=== PATIENT | female | born 1960 | race Caucasian/White ===

== ENCOUNTER 2017-08-26 09:42 | Day surgery (SDC) | payer BC, OTHER ==
[2017-08-25 15:10] VITALS: BMI 21.6
[2017-08-26 10:44] VITALS: RESP 16; TEMP 96.4
[2017-08-26 10:54] LABS: Glucose,Whole Blood 84 mg/dL (75-99)
[2017-08-26] MEDS ORDERED: LIDOCAINE 1% 20 ML VIAL (10MG/ML) FOR IV START INTRADERMA ONE (10:54)
[2017-08-26] MEDS: LACTATED RINGERS 1,000 ML IV SCH ×2 (10:54→11:15)
[2017-08-26] MEDS ORDERED: PROPOFOL 10 MG/ML 20 ML VIAL IV ONE (11:16)
--- NOTE | 2017-08-26 11:40 | P.PCN ---
Date of Procedure: 08/26/17 Procedure(s) Performed: BRIEF HISTORY: Patient is a 57-year-old pleasant white female scheduled for an elective colonoscopy as a part of intermittent right lower quadrant abdominal pain and rectal bleeding on and off for the last 2 years duration. PROCEDURE PERFORMED: Colonoscopy. PREOPERATIVE DIAGNOSIS: Abdominal pain and intermittent rectal bleeding. IV sedation per Anesthesia. PROCEDURE: After informed consent was obtained, the patient, was brought into the endoscopy unit. IV sedation was administered by Anesthesia under continuous monitoring. Digital rectal examination was normal. Initially the Olympus CF- 160 flexible video colonoscope was then inserted in the rectum, gradually advanced into the sigmoid colon and further advancement was not possible because of acute sigmoid and dilation. The scope was removed and a pediatric colonoscopy was then introduced and rectum and was gradually advanced into the cecum with [id number] difficulty. Careful examination was performed as the scope was gradually being withdrawn. Ileocecal valve and the appendiceal orifice were visualized and appeared normal. Prep was excellent. Mucosa of the cecum, ascending colon, transverse colon, descending colon, sigmoid colon, and rectum appeared normal. Retroflexion was performed in the rectum and small internal hemorrhoids were seen. The patient tolerated the procedure well. IMPRESSION: Normal-appearing colon from rectum to cecum with no evidence of colorectal neoplasia. Small internal hemorrhoids. RECOMMENDATIONS: Findings of this examination were discussed with the patient is well as her family. She was advised to continue with a high-fiber diet and fiber supplements a regular basis. He can have a repeat screening colonoscopy in 5 years because of family history of colon cancer.
[2017-08-26 11:58] VITALS: BP 126/78; PULSE 70
== END 2017-08-26 12:14 | disposition home or self-care (01) ==
LOC: ORWHC2ENDO 09:42
PROVIDERS: ATTEND Internal Medicine Gastroenterology
DX: K64.8 Other hemorrhoids (principal); Z80.0 Family history of malignant neoplasm of digestive organs; E07.9 Disorder of thyroid, unspecified; G40.909 Epilepsy, unspecified, not intractable, without status epilepticus; Z79.899 Other long term (current) drug therapy; Z88.5 Allergy status to narcotic agent; Z88.8 Allergy status to other drugs, medicaments and biological substances
CPT/HCPCS: 45378; J2704

== ENCOUNTER → 2018-03-30 | Outpatient (CLI) | payer OTHER ==
--- NOTE | 2018-03-30 12:19 | MM ---
Reason for exam: screening (asymptomatic). Last mammogram was performed 2 years and 1 month ago. History: Patient is postmenopausal. Family history of breast cancer in paternal aunt. Took hormonal contraceptives for 3 years. Physical Findings: A clinical breast exam by your physician is recommended on an annual basis and results should be correlated with mammographic findings. MG 3D Screening Mammo W/Cad Bilateral CC and MLO view(s) were taken. Prior study comparison: February 22, 2016, bilateral MG screening mammo w CAD. May 18, 2013, CAD bilateral diagnostic mammogram. The breast tissue is heterogeneously dense. This may lower the sensitivity of mammography. There is no discrete abnormality. ASSESSMENT: Negative, BI-RAD 1 RECOMMENDATION: Routine screening mammogram of both breasts in 1 year.
== END ==
LOC: RADMAMWWP 07:34
PROVIDERS: ATTEND Family Medicine
DX: Z12.31 Encounter for screening mammogram for malignant neoplasm of breast (principal)
CPT/HCPCS: 77063; 77067

== ENCOUNTER → 2019-03-31 | Outpatient (CLI) | payer OTHER ==
--- NOTE | 2019-03-31 11:19 | MM ---
Reason for exam: screening (asymptomatic). Last mammogram was performed 1 year ago. History: Patient is postmenopausal and has history of other cancer at age 58. Family history of breast cancer in paternal aunt. Took hormonal contraceptives for 3 years. Physical Findings: A clinical breast exam by your physician is recommended on an annual basis and results should be correlated with mammographic findings. MG 3D Screening Mammo W/Cad Bilateral CC and MLO view(s) were taken. Prior study comparison: March 30, 2018, bilateral MG 3d screening mammo w/cad. February 22, 2016, bilateral MG screening mammo w CAD. The breast tissue is heterogeneously dense. This may lower the sensitivity of mammography. There is no discrete abnormality. ASSESSMENT: Negative, BI-RAD 1 RECOMMENDATION: Routine screening mammogram of both breasts in 1 year.
== END | disposition home or self-care (01) ==
LOC: RADMAMWWP 07:33
PROVIDERS: ATTEND Family Medicine
DX: Z12.31 Encounter for screening mammogram for malignant neoplasm of breast (principal)
CPT/HCPCS: 77063; 77067

== ENCOUNTER → 2019-07-13 | Outpatient (CLI) | payer OTHER ==
--- NOTE | 2019-07-13 13:53 | US ---
EXAMINATION TYPE: US thyroid st tissue head/neck DATE OF EXAM: 07/13/2019 COMPARISON: 10/06/2017 CLINICAL HISTORY: E04.1 thyroid nodule, R59.1 Lymphadenopathy. GLAND SIZE: Right Lobe: 4.7 x 1.0 x 1.3 cm Overall Parenchyma: homogenous Left Lobe: 4.9 x 1.7 x 1.1 cm Overall Parenchyma: homogeneous Isthmus Thickness: 0.2 cm NODULES RIGHT: # of nodules measured on right: 2 1. 0.7 X 0.4 x 0.3 cm hypoechoic cystic nodule at the lower pole with well-defined margins; interru pted peripheral calcification. This nodule is wider than tall and shows no intranodular vascularity. Prior size: 0.5 x 0.4 x 0.3 cm 2. 0.7 X 0.4 x 0.3 cm hypoechoic cystic nodule at the mid lateral pole with well-defined margins. T his nodule is wider than tall and shows no intranodular vascularity. Prior size: 0.5 x 0.3 x 0.4 LEFT: # of nodules measured on left: 2 1. 0.6 X 0.6 x 0.4 cm hypoechoic mixed nodule at the mid pole with poorly defined margins. This no dule is wider than tall and shows no intranodular vascularity. Prior size: 0.6 x 0.3 x 0.5 cm 2. 1.3 X 0.9 x 0.5 cm hypoechoic solid nodule at the lower pole with well-defined margins. This nod ule is wider than tall and shows intranodular vascularity. Prior size: 0.9 x 0.6 x 0.7 cm ISTHMUS: # of nodules measured in the isthmus: 0 US findings of bilateral neck scanned: superolateral to right thyroid couple of lymph nodes are seen with larger node = 1.3 x 0.6 x 0.4cm. Superolateral to left thyroid one lymph node is seen = 0.95 x 0 .6 x 0.3cm. IMPRESSION: 1. Thyromegaly with a single thyroid nodule measuring greater than 1 cm (1.3 cm) on the left which is increased in size from the prior exam where it measured 9 mm. 2. Shotty lymphadenopathy. 3. Multiple additional subcentimeter thyroid nodules noted.
== END | disposition home or self-care (01) ==
LOC: RADUSWWP 12:50
PROVIDERS: ATTEND Family Medicine
DX: E01.0 Iodine-deficiency related diffuse (endemic) goiter (principal); R59.1 Generalized enlarged lymph nodes
CPT/HCPCS: 76536

== ENCOUNTER → 2019-08-02 | Outpatient (CLI) | payer OTHER ==
[2019-08-02 18:15] LABS: Thyroid Peroxidase Antibodies <28.0 U/mL (0.0-60.0)
== END | disposition home or self-care (01) ==
LOC: LABWHC1 09:06
PROVIDERS: ATTEND Otolaryngology
DX: E04.1 Nontoxic single thyroid nodule (principal)
CPT/HCPCS: 36415; 86376; 86800

== ENCOUNTER → 2020-07-12 | Outpatient (CLI) | payer OTHER ==
--- NOTE | 2020-07-13 11:35 | MM ---
Reason for exam: screening (asymptomatic). Last mammogram was performed 1 year and 3 months ago. History: Patient is postmenopausal and has history of other cancer at age 58. Family history of breast cancer in paternal aunt. Took hormonal contraceptives for 3 years. Physical Findings: A clinical breast exam by your physician is recommended on an annual basis and results should be correlated with mammographic findings. MG 3D Screening Mammo W/Cad Bilateral CC and MLO view(s) were taken. Prior study comparison: March 31, 2019, bilateral MG 3d screening mammo w/cad. March 30, 2018, bilateral MG 3d screening mammo w/cad. The breast tissue is heterogeneously dense. This may lower the sensitivity of mammography. No significant changes when compared with prior studies. ASSESSMENT: Benign, BI-RAD 2 RECOMMENDATION: Routine screening mammogram of both breasts in 1 year.
== END | disposition home or self-care (01) ==
LOC: RADMAMWWP 14:02
PROVIDERS: ATTEND Nurse Practitioner Adult Health
DX: Z12.31 Encounter for screening mammogram for malignant neoplasm of breast (principal)
CPT/HCPCS: 77063; 77067

== ENCOUNTER → 2020-11-16 | Outpatient (CLI) | payer OTHER ==
--- NOTE | 2020-11-16 14:49 | US ---
EXAMINATION TYPE: US thyroid st tissue head/neck DATE OF EXAM: 11/16/2020 COMPARISON: US 2019 CLINICAL HISTORY: E04.1 Thyroid nodule. GLAND SIZE: Right Lobe: 4.3 x 1.2 x 1.8 cm Overall Parenchyma: homogenous Left Lobe: 5.0 x 1.3 x 1.4 cm Overall Parenchyma: homogeneous Isthmus Thickness: 0.2 cm NODULES RIGHT: # of nodules measured on right: 2 1. 0.7 X 0.3 x 0.5 cm, mid mid, cystic or almost completely cystic, anechoic nodule, which is wider than tall, with smooth margins, without echogenic foci. Prior size: 0.7 x 0.3 x 0.4 cm 2. 0.6 X 0.3 x 0.5 cm, lower medial, cystic or almost completely cystic, anechoic cyst with periphe ral calcification suggestive of a colloid cyst, which is wider than tall, with smooth margins, with e chogenic foci. Prior size: 0.7 x 0.4 x 0.3 cm LEFT: # of nodules measured on left: 2 1. 0.7 X 0.5 x 0.7 cm, mid mid, solid or almost completely solid, hypoechoic spongiform nodule, whi ch is wider than tall, with smooth margins, without echogenic foci. Prior size: 0.6 x 0.6 x 0.4 cm 2. 1.1 X 0.6 x 0.8 cm, lower lateral, solid or almost completely solid, hypoechoic nodule, which i s wider than tall, with ill-defined margins, without echogenic foci. Prior size: 1.3 x 0.9 x 0.5 cm ISTHMUS: # of nodules measured in the isthmus: 0 Bilateral neck scanned, no evidence of lymphadenopathy. IMPRESSION: 1. 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 2. Left thyroid gland: Spongiform nodule within the left thyroid gland is minimally larger than prior exam. This is a TI-RADS 1 nodule. 3. Left thyroid gland: There is a 1.1 cm hypoechoic nodule which is slightly smaller than prior exam suggestive of a TI-RADS 4 nodule. Continued sonographic follow-up is recommended. 2017 ACR TI-RADS LEVEL: 4 *Highest TI-RADS level nodule reported
== END | disposition home or self-care (01) ==
LOC: RADUSWWP 12:35
PROVIDERS: ATTEND Family Medicine
DX: E04.1 Nontoxic single thyroid nodule (principal)
CPT/HCPCS: 76536

== ENCOUNTER → 2021-08-02 | Outpatient (CLI) | payer OTHER ==
--- NOTE | 2021-08-06 09:29 | MM ---
Reason for exam: screening (asymptomatic). Last mammogram was performed 1 year and 1 month ago. History: Patient is postmenopausal and has history of other cancer at age 58. Family history of breast cancer in paternal aunt. Took hormonal contraceptives for 3 years. Physical Findings: A clinical breast exam by your physician is recommended on an annual basis and results should be correlated with mammographic findings. MG 3D Screening Mammo W/Cad Bilateral CC and MLO view(s) were taken. Prior study comparison: July 12, 2020, bilateral MG 3d screening mammo w/cad. March 31, 2019, bilateral MG 3d screening mammo w/cad. The breast tissue is heterogeneously dense. This may lower the sensitivity of mammography. Central left MLO density does not persist on 3D images and appears similar to 2016. No significant changes when compared with prior studies. ASSESSMENT: Benign, BI-RAD 2 RECOMMENDATION: Routine screening mammogram of both breasts in 1 year. Patient should continue monthly self breast exams. A negative report should not preclude additional follow up of suspicious palpable abnormalities.
== END | disposition home or self-care (01) ==
LOC: RADMAMWWP 12:51
PROVIDERS: ATTEND Family Medicine
DX: Z12.31 Encounter for screening mammogram for malignant neoplasm of breast (principal)
CPT/HCPCS: 77063; 77067

== ENCOUNTER 2021-10-24 19:33 | Emergency (ER) | payer OTHER ==
--- NOTE | 2021-10-24 21:39 | XR ---
EXAMINATION TYPE: XR chest 1V portable DATE OF EXAM: 10/24/2021 9:04 PM COMPARISON: None TECHNIQUE: XR chest 1V portable Frontal view of the chest. CLINICAL INDICATION:Female, 61 years old with history of cough ; FINDINGS: Lungs/Pleura: There is no evidence of pleural effusion, focal consolidation, or pneumothorax. Pulmonary vascularity: Unremarkable. Heart/mediastinum: Cardiomediastinal silhouette is unremarkable. Musculoskeletal: No acute osseous pathology. IMPRESSION: No acute cardiopulmonary disease/process.
[2021-10-24] MEDS ORDERED: OSELTAMIVIR 75 MG CAP PO STA (21:42)
--- NOTE | 2021-10-24 21:46 | ED ---
Headache HPI - General Chief Complaint: Headache Stated Complaint: Headache,Cough Time Seen by Provider: 10/24/21 21:40 Source: RN notes reviewed, old records reviewed Mode of arrival: ambulatory Limitations: no limitations - History of Present Illness Initial Comments: This is a 61-year-old female to the emergency department for evaluation of multiple nonspecific complaints including headache fever chills. Patient has no known travel history or sick contacts. She states she has have a history of migraines miscarriages by mouth worst migraine than normal. No traumas. Just feeling pressure pressure on her face and bodyaches and pains. MD Complaint: headache, other (Bodyaches) -: hour(s) Onset Description: gradual Location: frontal Severity: moderate Severity scale (1-10): 6 Quality: aching, throbbing Consistency: constant Improves With: nothing Worsens With: none Context: occurred at rest Associated Symptoms: fever, nausea Other Symptoms: cough, malaise Treatments Prior to Arrival: none - Related Data Home Medications Medication Instructions Recorded Confirmed Levothyroxine Sodium [Synthroid] 1 tab PO DAILY 12/23/13 08/26/17 carBAMazepine [TEGretol] 400 tab PO DAILY 12/23/13 08/26/17 Previous Rx's Medication Instructions Recorded Oseltamivir [Tamiflu] 75 mg PO Q12HR #10 cap 10/24/21 Allergies Allergy/AdvReac Type Severity Reaction Status Date / Time hydroxychloroquine sulfate Allergy Rash/Hives Verified 10/24/21 20:49 [From Plaquenil] codeine AdvReac Abdominal Verified 10/24/21 20:49 Pain Review of Systems ROS Statement: Those systems with pertinent positive or pertinent negative responses have been documented in the HPI. ROS Other: All systems not noted in ROS Statement are negative. Past Medical History Past Medical History: Seizure Disorder, Thyroid Disorder Additional Past Medical History / Comment(s): hemorrhoid-with some bleeding. History of Any Multi-Drug Resistant Organisms: None Reported Past Surgical History: Appendectomy, Cholecystectomy, Hysterectomy Additional Past Surgical History / Comment(s): elbow surgery. Past Anesthesia/Blood Transfusion Reactions: No Reported Reaction, Motion Sickness Past Psychological History: No Psychological Hx Reported Smoking Status: Never smoker Past Alcohol Use History: Occasional Past Drug Use History: None Reported - Past Family History Mother Family Medical History: Cancer Additional Family Medical History / Comment(s): lung cancer Father Family Medical History: Cancer Additional Family Medical History / Comment(s): lung cancer General Exam Limitations: no limitations General appearance: alert, in no apparent distress Head exam: Present: atraumatic, normocephalic, normal inspection Eye exam: Present: normal appearance, PERRL, EOMI. Absent: scleral icterus, conjunctival injection, periorbital swelling ENT exam: Present: normal exam, mucous membranes moist Neck exam: Present: normal inspection. Absent: tenderness, meningismus, lymphadenopathy Respiratory exam: Present: normal lung sounds bilaterally. Absent: respiratory distress, wheezes, rales, rhonchi, stridor Cardiovascular Exam: Present: regular rate, normal rhythm, normal heart sounds. Absent: systolic murmur, diastolic murmur, rubs, gallop, clicks GI/Abdominal exam: Present: soft, normal bowel sounds. Absent: distended, tenderness, guarding, rebound, rigid Extremities exam: Present: normal inspection, full ROM, normal capillary refill. Absent: tenderness, pedal edema, joint swelling, calf tenderness Back exam: Present: normal inspection Neurological exam: Present: alert, oriented X3, CN II-XII intact Psychiatric exam: Present: normal affect, normal mood Skin exam: Present: warm, dry, intact, normal color. Absent: rash Course Vital Signs 10/24/21 10/24/21 20:43 21:42 Temperature 99.7 F H Pulse Rate 99 Respiratory 18 20 Rate Blood Pressure 106/58 O2 Sat by Pulse 96 Oximetry - Reevaluation(s) Reevaluation #1: 10/24/21 21:44 Medical record is reviewed Reevaluation #2: 10/24/21 21:45 Patient symptoms are improved here in the emergency department Reevaluation #3: 10/24/21 21:45 Patient informed results and questions answered Medical Decision Making - Medical Decision Making 61 female who is presents today for evaluation regards to headache. Patient has positive flu. Patient will be placed on Tamiflu and can be discharged home Motrin Tylenol for symptoms - Lab Data Lab Results 10/24/21 10/24/21 10/24/21 Range/Units 20:57 20:57 20:57 Coronavirus (PCR) Not Detected (Not Detectd) Influenza Type A RNA Detected H (Not Detectd) Influenza Type B (PCR) Not Detected (Not Detectd) Group A Strep Rapid Negative (Negative) - Radiology Data Radiology results: report reviewed (Chest x-rays negative for acute disease), image reviewed Disposition Clinical Impression: Influenza A, Headache Disposition: HOME SELF-CARE Condition: Good Instructions (If sedation given, give patient instructions): Influenza (ED) Prescriptions: Oseltamivir [Tamiflu] 75 mg PO Q12HR #10 cap Is patient prescribed a controlled substance at d/c from ED?: No Referrals: Kavon Mcintyre MD [Primary Care Provider] - 1-2 days
[2021-10-24] MEDS ORDERED: PROCHLORPERAZINE 5 MG TAB PO STA (21:54)
[2021-10-24] MEDS ORDERED: diphenhydrAMINE 50 MG CAP PO STA (21:54)
[2021-10-24] MEDS ORDERED: dexAMETHasone 2 MG TAB PO STA (21:54)
[2021-10-24] MEDS ORDERED: ETODOLAC 400 MG TAB PO STA (21:54)
[2021-10-24] MEDS ORDERED: HYDROcodone/APAP 5-325MG 1 EACH TAB PO STA (21:54)
[2021-10-24 22:18] VITALS: BP 110/60; PULSE 92; RESP 18; TEMP 98.7
== END 2021-10-24 22:17 | disposition home or self-care (01) ==
LOC: EC 19:33
DX: J10.1 Influenza due to other identified influenza virus with other respiratory manifestations (principal); R51.9 Headache, unspecified; E07.9 Disorder of thyroid, unspecified; Z79.1 Long term (current) use of non-steroidal anti-inflammatories (NSAID); Z20.822 Contact with and (suspected) exposure to COVID-19; Z88.5 Allergy status to narcotic agent; Z88.8 Allergy status to other drugs, medicaments and biological substances
CPT/HCPCS: 87081; 87430; 87502; 87635; 71045; 99284; S0183; J8540

== ENCOUNTER → 2021-12-30 | Outpatient (CLI) | payer OTHER ==
--- NOTE | 2021-12-30 13:00 | US ---
EXAMINATION TYPE: US thyroid st tissue head/neck DATE OF EXAM: 12/30/2021 COMPARISON: 11/16/20 CLINICAL HISTORY: E04.1 Nontoxic single thyroid nodule. Hx of thyroid nodules GLAND SIZE: Right Lobe: 4.6 x 1.7 x 1.2 cm Overall Parenchyma: homogenous Left Lobe: 4.3 x 1.7 x 1.1 cm Overall Parenchyma: homogeneous Isthmus Thickness: 0.24 cm NODULES RIGHT: # of nodules measured on right: 2 1. 0.3 X 0.2 x 0.2 cm, mid lateral, cystic or almost completely cystic, anechoic nodule, which is w ider than tall, with smooth margins, with echogenic foci. Prior size: N/A 2. 0.6 X 0.5 x 0.3 cm, mid mid, cystic or almost completely cystic, anechoic nodule, which is wider than tall, with smooth margins, without echogenic foci. Prior size: 0.7 x 0.5 x 0.3 cm LEFT: # of nodules measured on left: 2 1. 0.8 X 0.6 x 0.4 cm, mid mid, solid or almost completely solid, hypoechoic nodule, which is wider than tall, with smooth margins, without echogenic foci. Prior size: 0.7 x 0.7 x 0.5 cm 2. 1.2 X 0.9 x 0.6 cm, lower lateral, solid or almost completely solid, hypoechoic nodule, which i s wider than tall, with ill-defined margins, without echogenic foci. Prior size: 1.1 x 0.8 x 0.6 cm ISTHMUS: # of nodules measured in the isthmus: 0 Bilateral neck scanned, no evidence of lymphadenopathy. Heterogeneous normal-sized thyroid with stable small bilateral thyroid nodules. IMPRESSION: As above. No new or enlarging greater than 1.0 cm solid nodule seen.
== END | disposition home or self-care (01) ==
LOC: RADUSWWP 12:18
PROVIDERS: ATTEND Family Medicine
DX: E04.1 Nontoxic single thyroid nodule (principal)
CPT/HCPCS: 76536

== ENCOUNTER 2022-04-01 10:43 | Observation (INO) | payer OTHER ==
[2022-04-01] MEDS ORDERED: ASPIRIN 81 MG PO STA (11:08)
--- NOTE | 2022-04-01 11:23 | ED ---
Chest Pain HPI - General Chief Complaint: Chest Pain Stated Complaint: chest pain Time Seen by Provider: 04/01/22 11:00 Source: patient, RN notes reviewed Mode of arrival: ambulatory Limitations: no limitations - History of Present Illness Initial Comments: 61-year-old female presents emergency Department with chief complaint chest pain. Patient states she's been having progressive symptoms. Patient states that symptoms are usually onset with exertion. She states she starts developing centralized chest pressure radiates to her right jaw region. Patient denies any prior cardiac disease she does have significant family heart disease. Patient denies fevers or chills patient denies any lung disease no prior DVT or PE. - Related Data Home Medications Medication Instructions Recorded Confirmed Levothyroxine Sodium [Synthroid] 25 mcg PO DAILY 12/23/13 04/01/22 carBAMazepine [TEGretol] 200 tab PO BID 12/23/13 04/01/22 FLUoxetine HCL [PROzac] 40 mg PO DAILY 04/01/22 04/01/22 Allergies Allergy/AdvReac Type Severity Reaction Status Date / Time hydroxychloroquine sulfate Allergy Rash/Hives Verified 04/01/22 12:15 [From Plaquenil] codeine AdvReac Abdominal Verified 04/01/22 12:15 Pain Review of Systems ROS Statement: Those systems with pertinent positive or pertinent negative responses have been documented in the HPI. ROS Other: All systems not noted in ROS Statement are negative. EKG Findings - EKG Comments: EKG Findings:: EKG performed at 11:09 sinus rhythm with rate of 71 CA 156 QRS 99 QT/ QTC 390/418 Past Medical History Past Medical History: Seizure Disorder, Thyroid Disorder Additional Past Medical History / Comment(s): hemorrhoid-with some bleeding. History of Any Multi-Drug Resistant Organisms: None Reported Past Surgical History: Appendectomy, Cholecystectomy, Hysterectomy Additional Past Surgical History / Comment(s): elbow surgery. Past Anesthesia/Blood Transfusion Reactions: No Reported Reaction, Motion Sickness Past Psychological History: No Psychological Hx Reported Smoking Status: Never smoker Past Alcohol Use History: Occasional Past Drug Use History: None Reported - Past Family History Mother Family Medical History: Cancer Additional Family Medical History / Comment(s): lung cancer Father Family Medical History: Cancer Additional Family Medical History / Comment(s): lung cancer General Exam Limitations: no limitations General appearance: alert, in no apparent distress Head exam: Present: atraumatic, normocephalic, normal inspection Eye exam: Present: normal appearance, PERRL, EOMI. Absent: scleral icterus, conjunctival injection, periorbital swelling ENT exam: Present: normal exam, normal oropharynx, mucous membranes moist Neck exam: Present: normal inspection, full ROM. Absent: tenderness, meningismus, lymphadenopathy Respiratory exam: Present: normal lung sounds bilaterally. Absent: respiratory distress, wheezes, rales, rhonchi, stridor Cardiovascular Exam: Present: regular rate, normal rhythm, normal heart sounds. Absent: systolic murmur, diastolic murmur, rubs, gallop, clicks Course Vital Signs 04/01/22 10:50 Temperature 98.0 F Pulse Rate 79 Respiratory 18 Rate Blood Pressure 139/65 O2 Sat by Pulse 99 Oximetry Chest Pain MDM - MDM 61-year-old presented for chest pain, chest pressure with radiation progressive symptoms worsen with exertion. Patient workup was negative this time she'll be admitted for further cardiac rule out including echocardiogram, carotid evaluation. Disposition Clinical Impression: Chest pain Disposition: ADMITTED IP TO THIS HOSP Condition: Fair Referrals: Parris Dominguez NPC [Primary Care Provider] - 1-2 days Time of Disposition: 12:39
[2022-04-01 11:46] LABS: Basophils % (A) 1 %; Eosinophils # (A) 0.1 k/uL (0-0.7); Eosinophils % (A) 2 %; HCT 36.6 % (34.0-46.0); HGB 12.8 gm/dL (11.4-16.0); Lymphocytes # (A) 1.2 k/uL (1.0-4.8); Lymphocytes % (A) 31 %; MCH 33.4 pg (25.0-35.0); MCHC 35.1 g/dL (31.0-37.0); MCV 95.2 fL (80.0-100.0); Mean Platelet Volume 8.1; Monocytes # (A) 0.3 k/uL (0-1.0); Monocytes % (A) 8 %; Neutrophils # (A) 2.1 k/uL (1.3-7.7); Neutrophils % (A) 55 %; Platelet Count 197 k/uL (150-450); RBC 3.84 m/uL (3.80-5.40); RDW 12.1 % (11.5-15.5); WBC 3.9 k/uL (3.8-10.6)
[2022-04-01 11:59] LABS: ALT 18 U/L (4-34); AST 29 U/L (14-36); African American GFR (CKD) >90 (>60 ml/min/1.73 sqM); Albumin 4.6 g/dL (3.5-5.0); Alkaline Phosphatase 81 U/L (38-126); Anion Gap 11 mmol/L; Blood Urea Nitrogen 13 mg/dL (7-17); Calcium 9.2 mg/dL (8.4-10.2); Carbon Dioxide 24 mmol/L (22-30); Chloride 99 mmol/L (98-107); Glucose 82 mg/dL (74-99); INR 0.9 (<1.2); Non-African American GFR(CKD) >90 (>60 ml/min/1.73 sqM); Partial Thromboplastin Time 31.1 sec (22.0-30.0); Potassium 4.2 mmol/L (3.5-5.1); Prothrombin Time 10.3 sec (9.0-12.0); Sodium 134 mmol/L (137-145); Total Bilirubin 0.4 mg/dL (0.2-1.3); Total Protein 7.2 g/dL (6.3-8.2)
--- NOTE | 2022-04-01 11:59 | XR ---
EXAMINATION TYPE: XR chest 2V DATE OF EXAM: 04/01/2022 COMPARISON: 10/24/2021 HISTORY: 61-year-old female with chest and jaw pain TECHNIQUE: PA and lateral views FINDINGS: Heart normal size. Aorta and pulmonary vasculature within normal. Mild interstitial prominence is unc hanged. No consolidation or pleural effusion. IMPRESSION: Chronic changes. No acute process seen.
[2022-04-01] MEDS ORDERED: NITROGLYCERIN SL TABS 0.4 MG TAB SUBLINGUAL PRN (12:39)
--- NOTE | 2022-04-01 14:56 | P.HPIM ---
History of Present Illness H&P Date: 04/01/22 Chief Complaint: chest pain Patient is a 61-year-old female with past medical history of epilepsy and hypothyroidism presenting with acute chest pain. She claims that she had COVID- 19 infection in February. During that time she was having significant cough, chest pain, shortness of breath. She believes that she completely recovered from her infection. However, she started to experience exertional chest pain in the last 2-3 weeks. She claims that the chest pain is usually substernal and often radiates to the right side of her neck. The pain comes on with minimal exertion. She is chest pain-free while resting. She claims that she has patient will shortness of breath with chest pain, but denies any palpitations or lightheadedness. She denies any epigastric or abdominal pain. Denies any bowel or bladder symptoms. She has a significant family history of heart disease, including NC. She denies any personal history of cardiac disease. She denies any recent sick contacts or travel history. In the ED, patient's vital signs were within normal limits. Her labs were unremarkable. First troponin was negative. EKG showed normal sinus rhythm. Chest x-ray showed no acute process. Pertinent positives and negatives as discussed in HPI, a complete review of systems was performed and all other systems are negative. Patient seen and examined at bedside. Vital signs reviewed General: nontoxic, no distress, appears at stated age Derm: warm, dry Head: atraumatic, normocephalic, symmetric Eyes: EOMI, no lid lag, anicteric sclera, pupils equal round reactive to light ENT: Nose and ears atraumatic, no thrush, no pharyngeal erythema Neck: No thyromegaly, no cervical lymphadenopathy, trachea midline, supple Mouth: no lip lesion, mucus membranes moist Cardiovascular: S1S2 reg, no murmur, no edema Lungs: clear to auscultation bilateral, no rhonchi, no rales, no wheeze, no accessory muscle use Abdominal: soft, nontender to palpation, no guarding, no appreciable organomegaly, normal bowel sounds Ext: no gross muscle atrophy, muscle strength muscle strength 5 out of 5 in all 4 extremities, no contractures Neuro: CN II-XII grossly intact, light touch intact all 4 extremities Psych: Alert, oriented, appropriate affect Assessment/Plan: Acute chest pain, rule out ACS Could possibly be secondary to either stable angina or related to recent COVID- 19 infection -EKG and chest x-ray unremarkable -Continue aspirin -Lipid panel, A1c, TSH -Cardiology consult Chronic medical problems: Epilepsy Hyperthyroidism Depression -Continue home medications The patient is admitted with an anticipated less than 2 midnight stay for evaluation of [chest pain]. Surrogate decision-maker: Juan, Significant other CODE STATUS: Full code DVT prophylaxis: Heparin subcu Anticipated discharge date: 04/[address]: Home A total of 43 minutes was spent on the care of this complex patient more than 50% of the time was spent in counseling and care coordination. Past Medical History Past Medical History: Seizure Disorder, Thyroid Disorder Additional Past Medical History / Comment(s): hemorrhoid-with some bleeding. History of Any Multi-Drug Resistant Organisms: None Reported Past Surgical History: Appendectomy, Cholecystectomy, Hysterectomy Additional Past Surgical History / Comment(s): elbow surgery. Past Anesthesia/Blood Transfusion Reactions: No Reported Reaction, Motion Sickness Past Psychological History: No Psychological Hx Reported Smoking Status: Never smoker Past Alcohol Use History: Occasional Past Drug Use History: None Reported - Past Family History Mother Family Medical History: Cancer Additional Family Medical History / Comment(s): lung cancer Father Family Medical History: Cancer Additional Family Medical History / Comment(s): lung cancer Medications and Allergies Home Medications Medication Instructions Recorded Confirmed Type Levothyroxine Sodium [Synthroid] 25 mcg PO DAILY 12/23/13 04/01/22 History carBAMazepine [TEGretol] 200 mg PO BID 12/23/13 04/01/22 History FLUoxetine HCL [PROzac] 40 mg PO DAILY 04/01/22 04/01/22 History Allergies Allergy/AdvReac Type Severity Reaction Status Date / Time hydroxychloroquine sulfate Allergy Rash/Hives Verified 04/01/22 12:15 [From Plaquenil] codeine AdvReac Abdominal Verified 04/01/22 12:15 Pain Physical Exam Vitals: Vital Signs Temp Pulse Pulse Resp BP BP Pulse Ox 04/01/22 13:51 97.8 F 68 16 129/67 97 04/01/22 13:07 66 16 120/74 99 04/01/22 10:50 98.0 F 79 18 139/65 99 Intake and Output 03/31/22 04/01/22 04/01/22 22:59 06:59 14:59 Other: Weight 72.575 kg Results CBC & Chem 7: 04/01/22 11:20 04/01/22 11:20 Labs: Abnormal Lab Results - Last 24 Hours (Table) 04/01/22 04/01/22 Range/Units 11:20 11:20 APTT 31.1 H (22.0-30.0) sec Sodium 134 L (137-145) mmol/L Thrombosis Risk Factor Assmnt - Choose All That Apply Any of the Below Risk Factors Present?: No Other Risk Factors: Yes Each Risk Factor Represents 2 Points: Age 61-74 years Thrombosis Risk Factor Assessment Total Risk Factor Score: 2 Thrombosis Risk Factor Assessment Level: Low Risk
[2022-04-01] MEDS: HEPARIN SODIUM,PORCINE/PF 5,000 UNIT/0.5 ML SYRINGE SQ SCH (16:04)
[2022-04-01] MEDS: carBAMazepine 200 MG TAB PO SCH (21:31)
[2022-04-02] MEDS: ACETAMINOPHEN TAB 325 MG TAB PO PRN ×2 (01:23→08:32)
[2022-04-02] MEDS: HEPARIN SODIUM,PORCINE/PF 5,000 UNIT/0.5 ML SYRINGE SQ SCH ×3 (01:23→16:48)
[2022-04-02 01:42] VITALS: RESP 18
[2022-04-02] MEDS ORDERED: LEVOTHYROXINE 25 MCG TAB PO SCH (06:30)
[2022-04-02] MEDS ORDERED: ALPRAZolam 0.5 MG TAB PO PRN (06:48)
[2022-04-02] MEDS ORDERED: ALPRAZolam 0.25 MG TAB PO PRN (06:48)
[2022-04-02] MEDS ORDERED: ASPIRIN 325 MG TAB PO STA (06:48)
[2022-04-02] MEDS ORDERED: ATORVASTATIN 80 MG TAB PO STA (06:48)
[2022-04-02] MEDS ORDERED: NITROGLYCERIN SL TABS 0.4 MG TAB SUBLINGUAL PRN (06:48)
--- NOTE | 2022-04-02 06:48 | P.CRDCN ---
History of Present Illness History of present illness: HISTORY OF PRESENTING ILLNESS This is a pleasant 61-year-old with past medical history significant for hypothyroidism and epilepsy as well as family history of CAD. She states over the last 3 weeks she has been having increased episodes of chest tightness associated with shortness of breath as well as nausea. Symptoms almost always occurring when she exerts herself and improved with rest. She has however had 2 episodes where these occurred at rest and radiating into the jaw including one last night and therefore presented to emergency department. She does have family history of father with heart failure as well as mother with massive heart attack. She states normally her cholesterol levels are well controlled. She did have COVID in February however had been feeling okay after that and then symptoms started 3 weeks ago. EKG shows normal sinus rhythm without significant ST or T-wave abnormalities. Troponins noted to be normal 3. REVIEW OF SYSTEMS At the time of my exam: CONSTITUTIONAL: Denies fever or chills. CARDIOVASCULAR: +Chest pain, +shortness of breath, no orthopnea, PND or palpitations. RESPIRATORY: Denies cough. GASTROINTESTINAL: Denies abdominal pain, diarrhea, constipation, nausea or vomiting. MUSCULOSKELETAL: Denies myalgias. NEUROLOGIC: Denies numbness, tingling or weakness. ENDOCRINE: Denies fatigue, weight change, polydipsia or polyurina. GENITOURINARY: Denies burning, hematuria or urgency with micturation. HEMATOLOGIC: Denies history of anemia or bleeding. PHYSICAL EXAMINATION Vital signs reviewed. CONSTITUTIONAL: No apparent distress. HEENT: Head is normocephalic. Pupils are equal, round. Sclerae anicteric. Mucous membranes of the mouth are moist. No JVD. No carotid bruit. CHEST EXAMINATION: Lungs are clear to auscultation. No chest wall tenderness is noted on palpation or with deep breathing. HEART EXAMINATION: Regular rate and rhythm. S1, S2 heard. No murmurs, gallops or rub. ABDOMEN: Soft, nontender. Positive bowel sounds. EXTREMITIES: 2+ peripheral pulses, no lower extremity edema and no calf tenderness. NEUROLOGIC EXAMINATION: Patient is awake, alert and oriented x3. ASSESSMENT 1. Typical chest pain appears classic for angina concerning for unstable angina 2. Family history of CAD 3. Recent COVID-10 March 2022 4. Hypothyroidism 5. History of epilepsy PLAN Patient does have classic symptoms concerning for unstable angina with chest pain worse with exertion and improved with rest. Therefore discussed definitive diagnosis with heart catheterization and patient is agreeable. Heart catheterization today or tomorrow pending scheduling. Aspirin, beta clme as tolerated. Check 2-D echo. Further recommendations to follow. Past Medical History Past Medical History: Seizure Disorder, Thyroid Disorder Additional Past Medical History / Comment(s): hemorrhoid-with some bleeding. History of Any Multi-Drug Resistant Organisms: None Reported Past Surgical History: Appendectomy, Cholecystectomy, Hysterectomy Additional Past Surgical History / Comment(s): elbow surgery. Past Anesthesia/Blood Transfusion Reactions: No Reported Reaction, Motion Sickness Past Psychological History: No Psychological Hx Reported Smoking Status: Never smoker Past Alcohol Use History: Occasional Past Drug Use History: None Reported - Past Family History Mother Family Medical History: Cancer Additional Family Medical History / Comment(s): lung cancer Father Family Medical History: Cancer Additional Family Medical History / Comment(s): lung cancer Medications and Allergies Home Medications Medication Instructions Recorded Confirmed Type Levothyroxine Sodium [Synthroid] 25 mcg PO DAILY 12/23/13 04/01/22 History carBAMazepine [TEGretol] 200 mg PO BID 12/23/13 04/01/22 History FLUoxetine HCL [PROzac] 40 mg PO DAILY 04/01/22 04/01/22 History Allergies Allergy/AdvReac Type Severity Reaction Status Date / Time hydroxychloroquine sulfate Allergy Rash/Hives Verified 04/01/22 12:15 [From Plaquenil] codeine AdvReac Abdominal Verified 04/01/22 12:15 Pain Physical Exam Vitals: Vital Signs Temp Pulse Pulse Resp BP BP Pulse Ox 04/02/22 02:00 80 04/02/22 01:41 97.6 F 71 18 142/83 96 04/01/22 20:00 98.9 F 71 16 113/72 97 04/01/22 15:14 97 04/01/22 13:51 97.8 F 68 16 129/67 97 04/01/22 13:07 66 16 120/74 99 04/01/22 10:50 98.0 F 79 18 139/65 99 Intake and Output 04/01/22 04/01/22 04/02/22 14:59 22:59 06:59 Intake Total 618 Balance 618 Intake: Oral 618 Other: Voiding Method Toilet # Voids 1 2 Weight 72.575 kg Results 04/01/22 11:20 04/01/22 11:20 Cardiac Enzymes 04/01/22 04/01/22 04/01/22 Range/Units 11:20 11:20 14:18 AST 29 (14-36) U/L Troponin I <0.012 <0.012 (0.000-0.034) ng/mL 04/01/22 Range/Units 16:55 AST (14-36) U/L Troponin I <0.012 (0.000-0.034) ng/mL Coagulation 04/01/22 Range/Units 11:20 PT 10.3 (9.0-12.0) sec APTT 31.1 H (22.0-30.0) sec CBC 04/01/22 Range/Units 11:20 WBC 3.9 (3.8-10.6) k/uL RBC 3.84 (3.80-5.40) m/uL Hgb 12.8 (11.4-16.0) gm/dL Hct 36.6 (34.0-46.0) % Plt Count 197 (150-450) k/uL Comprehensive Metabolic Panel 04/01/22 Range/Units 11:20 Sodium 134 L (137-145) mmol/L Potassium 4.2 (3.5-5.1) mmol/L Chloride 99 (98-107) mmol/L Carbon Dioxide 24 (22-30) mmol/L BUN 13 (7-17) mg/dL Creatinine 0.59 (0.52-1.04) mg/dL Glucose 82 (74-99) mg/dL Calcium 9.2 (8.4-10.2) mg/dL AST 29 (14-36) U/L ALT 18 (4-34) U/L Alkaline Phosphatase 81 (38-126) U/L Total Protein 7.2 (6.3-8.2) g/dL Albumin 4.6 (3.5-5.0) g/dL Current Medications Generic Name Dose Route Start Last Admin Trade Name Freq PRN Reason Stop Dose Admin Acetaminophen 650 mg 04/02/22 00:48 04/02/22 01:23 Acetaminophen Tab 325 Mg Tab PO 650 mg Q6HR PRN Administration Fever and/ or Pain Aspirin 81 mg 04/02/22 09:00 Aspirin 81 Mg PO DAILY RAN Carbamazepine 200 mg 04/01/22 21:00 04/01/22 21:31 Carbamazepine 200 Mg Tab PO 200 mg BID RAN Administration Fluoxetine HCl 40 mg 04/02/22 09:00 Fluoxetine Hcl 20 Mg Cap PO DAILY RAN Heparin Sodium (Porcine) 5,000 unit 04/01/22 16:00 04/02/22 01:23 Heparin Sodium,Porcine/Pf 5,000 Unit/0.5 Ml Syringe SQ 5,000 unit Q8HR RAN Administration Levothyroxine Sodium 25 mcg 04/02/22 06:30 04/02/22 05:29 Levothyroxine 25 Mcg Tab PO 25 mcg 0630 RAN Administration Nitroglycerin 0.4 mg 04/01/22 12:39 04/02/22 01:34 Nitroglycerin Sl Tabs 0.4 Mg Tab SUBLINGUAL 0.4 mg Q5M PRN Administration Chest Pain Intake and Output 04/01/22 04/01/22 04/02/22 14:59 22:59 06:59 Intake Total 618 Balance 618 Intake: Oral 618 Other: Voiding Method Toilet # Voids 1 2 Weight 72.575 kg Patient Weight 04/02/22 06:59 Weight 72.575 kg 04/01/22 11:20 04/01/22 11:20
[2022-04-02] MEDS ORDERED: HEPARIN SODIUM,PORCINE 10,000 UNIT in SODIUM CHLORIDE 0.9% 1,000 ML IRRIGATION PRN (07:00)
[2022-04-02] MEDS ORDERED: HEPARIN SODIUM,PORCINE 2,500 UNIT in SODIUM CHLORIDE 0.9% 250 ML IRRIGATION PRN (07:00)
[2022-04-02] MEDS ORDERED: SODIUM CHLORIDE 0.9% 1,000 ML IV SCH (07:30)
[2022-04-02] MEDS: carBAMazepine 200 MG TAB PO SCH (07:36)
[2022-04-02] MEDS ORDERED: ASPIRIN 325 MG TAB PO SCH (09:00)
[2022-04-02] MEDS ORDERED: FLUoxetine HCL 20 MG CAP PO SCH (09:00)
[2022-04-02] MEDS ORDERED: ASPIRIN 81 MG PO SCH (09:00)
[2022-04-02 10:39] LABS: Chol/HDL Ratio 5.85 Ratio; LDL Cholesterol,Calculated 187.4 mg/dL (0.0-131.0)
[2022-04-02] MEDS ORDERED: VERAPAMIL 2.5 MG/ML 2 ML AMP ONE (12:34)
[2022-04-02] MEDS ORDERED: IV FLUID CONTINUATION 800 ML IV ONE (12:46)
[2022-04-02] MEDS ORDERED: fentaNYL (PF) 50 MCG/ML 2 ML AMP ONE (12:49)
[2022-04-02] MEDS ORDERED: LIDOCAINE 1% INJ 10MG/ML (30 ML VIAL-PF) SQ ONE (12:52)
[2022-04-02] MEDS ORDERED: fentaNYL (PF) 50 MCG/ML 2 ML AMP IVP ONE (12:52)
[2022-04-02] MEDS ORDERED: MIDAZOLAM 2 MG/2 ML VIAL IVP ONE (12:52)
[2022-04-02] MEDS ORDERED: VERAPAMIL SYRINGE (5 MG/10 ML) INTRAARTER ONE (12:53)
[2022-04-02] MEDS ORDERED: HEPARIN SODIUM 1,000 UN/ML (10ML VL) IVP ONE (12:58)
[2022-04-02] MEDS ORDERED: HEPARIN SODIUM 1,000 UN/ML (10ML VL) ONE (12:58)
[2022-04-02] MEDS ORDERED: IOPAMIDOL-370 125ML BTL INJ ONE (13:05)
--- NOTE | 2022-04-02 13:13 | CA ---
Transthoracic Echo Report Name: Kamlesh Olivier Age: 61 Gender: F : 1960 Exam Date: 04/02/2022 11:03 Exam Location: [facility] Ht (in): 62 Wt (lb): 160 Ordering Physician: [place] Attending/Referring Phys: [id number], Vance Elevator Builder Jeanette Torres, RDTIA Procedure CPT: Indications: Chest Pain Cardiac Hx: Technical Quality: Contrast 1: Total Dose (mL): Contrast 2: Total Dose (mL): MEASUREMENTS (Male / Female) Normal Values 2D ECHO LV Diastolic Diameter PLAX 4.7 cm 4.2 - 5.9 / 3.9 - 5.3 cm LV Systolic Diameter PLAX 3.2 cm IVS Diastolic Thickness 0.9 cm 0.6 - 1.0 / 0.6 - 0.9 cm LVPW Diastolic Thickness 1.6 cm 0.6 - 1.0 / 0.6 - 0.9 cm LV Relative Wall Thickness 0.5 LA Volume 58.9 cm??? 18 - 58 / 22 - 52 cm??? M-MODE Aortic Root Diameter MM 2.8 cm LA Systolic Diameter MM 3.1 cm LA Ao Ratio MM 1.1 AV Cusp Separation MM 1.5 cm DOPPLER MV Area PHT 4.0 cm??? Mitral E Point Velocity 66.4 cm/s Mitral A Point Velocity 57.8 cm/s Mitral E to A Ratio 1.1 MV Deceleration Time 189.4 ms MV E' Velocity 8.0 cm/s Mitral E to MV E' Ratio 8.3 FINDINGS Left Ventricle Left ventricular ejection fraction is estimated at 55%. Right Ventricle Normal right ventricular size and function. Right Atrium Normal right atrial size. Left Atrium Mildly increased left atrial volume. Mitral Valve Structurally normal mitral valve. Mild mitral regurgitation. Aortic Valve Trileaflet aortic valve. Tricuspid Valve Structurally normal tricuspid valve. Mild tricuspid regurgitation. Pulmonic Valve Structurally normal pulmonic valve. Pericardium Normal pericardium. Aorta Normal size aortic root and proximal ascending aorta. CONCLUSIONS Left ventricular ejection fraction 55% Mild mitral regurgitation Mild tricuspid regurgitation No pericardial effusion Previewed by: Dr. Justin Mao DO (Electronically Signed) Final Date: 02 April 2022 13:12
--- NOTE | 2022-04-02 13:31 | P.CARDCATH ---
Description of Procedure: PROCEDURES PERFORMED: Left heart catheterization, bilateral coronary angiography INDICATION: Chest pain worse with exertion concerning for unstable angina CONSENT:I have discussed the risks, benefits and alternative therapies for the above-mentioned procedure and for both sedation/analgesia as well as necessary blood product administration, if indicated, as they pertain to this patient. The patient has indicated understanding and acceptance of the risks and procedures discussed. PROCEDURE: After the risks, benefits and alternatives of the above mentioned procedure explained in detail with the patient, informed consent was obtained. Patient was taken to the catheterization lab and prepped and draped in usual fashion. 1% lidocaine was used to anesthetize the right radial artery. A 6- [place] Island[place] sheath was placed in the right radial artery using modified Seldinger technique. Left coronary angiography was performed with a 5-[place] JL 3.5 catheter and right coronary angiography was performed with a 5-[place] Island[place] JR5 catheter in various views. A 5-[place] Islander FR5 catheter was inserted into the left ventricle and pressure measurements were obtained. The right radial sheath was removed and a TR band was placed with hemostasis achieved. The patient tolerated the procedure well. Patient was transported back to the post catheter ization holding area in stable condition. Conscious Sedation: Patient was monitored under the direct supervision of vision of myself for conscious sedation using Versed and fentanyl for a total duration of 14 minutes HEMODYNAMICS: Ao: 132/71 LV: 138/2, LVEDP 10 SELECTIVE CORONARY ARTERIOGRAPHY: LEFT MAIN: The left main is a large caliber vessel which bifurcates into the LAD and circumflex. There is no significant stenosis. LEFT ANTERIOR DESCENDING CORONARY ARTERY: LAD is a large caliber vessel which comes short of the apex with the apex being fed by a right PDA. There is no significant stenosis. LEFT CIRCUMFLEX CORONARY ARTERY: Left circumflex is a moderate caliber vessel without significant stenosis. RIGHT CORONARY ARTERY: The right coronary artery is a large caliber vessel which gives off a PDA and PLV branch and is the dominant vessel. There is no significant stenosis. FINAL IMPRESSION: 1. Normal coronary arteries as described above. 2. Normal left sided filling pressures PLAN: 1. Aggressive risk factor modification per most recent ACC/AHA guidelines. 2. Follow-up in the office in 1-2 weeks.
--- NOTE | 2022-04-02 15:08 | P.DS ---
Providers Date of admission: 04/01/22 13:11 Expected date of discharge: 04/02/22 Attending physician: Viktoriya Curtis, Consults: 04/01/22 12:39 Consult Physician Urgent Consulting Provider: Justin Mao Consult Reason/Comments: chest pain Do you want consulting provider notified?: Yes Primary care physician: Parris Dominguez Hospital Course: Discharge Diagnosis: Atypical Acute chest pain Dyslipidemia Epilepsy Hypothyroidism Depression Hospital Course: 61-year-old female with history of epilepsy and hypothyroidism presenting with acute chest pain. She was evaluated by cardiology. EKG showed normal sinus rhythm, chest x-ray showed no acute process. Troponin were negative. Symptoms were concerning for unstable angina. Echo showed LVEF of 55%, mild mitral and tricuspid regurgitation. Cardiac catheterization showed normal coronary arteries and normal left-sided filling pressures. Lab work was significant for cholesterol of 276, LDL of 187, HDL of 47. Due to elevated ASCVD score, patient was discharged on moderate intensity statin. Patient seen and examined at bedside. Vital signs reviewed and stable. General: nontoxic, no distress, appears at stated age Derm: warm, dry Head: atraumatic, normocephalic, symmetric Eyes: EOMI, no lid lag, anicteric sclera Mouth: no lip lesion, mucus membranes moist Cardiovascular: S1S2 reg, no murmur Lungs: CTA bilateral, no rhonchi, no rales , no accessory muscle use Abdominal: soft, nontender to palpation, no guarding, no appreciable organomegaly Ext: no gross muscle atrophy, no edema, no contractures Neuro: CN II-XI grossly intact, no focal neuro deficits Psych: Alert, oriented, appropriate affect A total of 38 minutes of time were spent preparing this complex discharge summary. Patient was discharged on 04/02/22 at 15:03. Patient Condition at Discharge: Stable Plan - Discharge Summary Discharge Rx Participant: No New Discharge Prescriptions: New Atorvastatin [Lipitor] 20 mg PO DAILY #30 tablet Continue Levothyroxine Sodium [Synthroid] 25 mcg PO DAILY carBAMazepine [TEGretol] 200 mg PO BID FLUoxetine HCL [PROzac] 40 mg PO DAILY Discharge Medication List Levothyroxine Sodium [Synthroid] 25 mcg PO DAILY 12/23/13 [History] carBAMazepine [TEGretol] 200 mg PO BID 12/23/13 [History] FLUoxetine HCL [PROzac] 40 mg PO DAILY 04/01/22 [History] Atorvastatin [Lipitor] 20 mg PO DAILY #30 tablet 04/02/22 [Rx] Follow up Appointment(s)/Referral(s): Parris Dominguez NPC [Primary Care Provider] - 1-2 days Patient Instructions/Handouts: After Radial Heart Catheterization (GEN), Low Fat Diet (DC) Activity/Diet/Wound Care/Special Instructions: Please see PCP in 1-2 days. Discharge Disposition: HOME SELF-CARE
[2022-04-02 15:23] VITALS: TEMP 98.1
[2022-04-02 17:27] VITALS: BP 110/70; PULSE 68
== END 2022-04-02 18:31 | disposition home or self-care (01) ==
LOC: EC 10:43 → 6NMEDSUR 13:11
PROVIDERS: ADMIT Internal Medicine; ATTEND Internal Medicine
DX: R07.89 Other chest pain (principal); I08.1 Rheumatic disorders of both mitral and tricuspid valves; E78.5 Hyperlipidemia, unspecified; E03.9 Hypothyroidism, unspecified; G40.909 Epilepsy, unspecified, not intractable, without status epilepticus; R06.02 Shortness of breath; R11.0 Nausea; K64.9 Unspecified hemorrhoids; F32.A Depression, unspecified; Z79.890 Hormone replacement therapy; Z79.899 Other long term (current) drug therapy; Z88.5 Allergy status to narcotic agent; Z88.8 Allergy status to other drugs, medicaments and biological substances; Z86.16 Personal history of COVID-19; Z90.49 Acquired absence of other specified parts of digestive tract; Z90.710 Acquired absence of both cervix and uterus; Z98.890 Other specified postprocedural states; Z80.1 Family history of malignant neoplasm of trachea, bronchus and lung; Z82.49 Family history of ischemic heart disease and other diseases of the circulatory system
CPT/HCPCS: 96372 ×2; 99285; 36415; 93005; 93306; 93458; 85379; 83880; 80061; 80053; 84443; 83735; 84484; 85025; 85610; 85730; 83036; 71046; G0378 ×2; C1769; C1894; J2250; J2001; J3010; J1644 ×3; Q9967

== ENCOUNTER → 2022-04-23 | Outpatient (CLI) | payer OTHER ==
--- NOTE | 2022-04-23 10:24 | US ---
EXAMINATION TYPE: US duplex aorta DATE OF EXAM: 04/23/2022 COMPARISON: CT CLINICAL HISTORY: Z13.6 Encounter for screening for cardiovascular disease. AAA screening TECHNIQUE: Multiple sonographic images of the abdominal aorta are obtained. FINDINGS: EXAM MEASUREMENTS: Abdominal Aorta: Proximal: 1.9 x 2.1 cm Mid: 1.6 x 1.8 cm Distal: 1.4 x 1.8 cm Bifurcation: TULIO: 1.0 x 1.1 cm XIANG: 1.1 x 1.1 cm LINE DRIVER NOTES: Aorta successfully visualized through the bifurcation. IMPRESSION: No ultrasound evidence for greater than 3.0 cm AAA.
== END | disposition home or self-care (01) ==
LOC: RADUSWWP 09:59
PROVIDERS: ATTEND Family Medicine
DX: Z13.6 Encounter for screening for cardiovascular disorders (principal)
CPT/HCPCS: 93979

== ENCOUNTER 2022-06-13 11:05 | Day surgery (SDC) | payer OTHER ==
[2022-06-10 14:58] VITALS: BMI 22.3
[~2022-06-13 11:05] MED LIST: LACTATED RINGERS 1,000 ML IV SCH; LIDOCAINE 1% (10MG/ML) FOR IV START INTRADERMA PRN
[2022-06-13 11:46] VITALS: RESP 18; TEMP 97.2
[2022-06-13] MEDS ORDERED: PROPOFOL 10 MG/ML 20 ML VIAL IV ONE (13:00)
[2022-06-13] MEDS ORDERED: LIDOCAINE 2% INJ 20 MG/ML (2 ML VIAL) ONE (13:00)
--- NOTE | 2022-06-13 13:13 | P.PCN ---
Date of Procedure: 06/13/22 Procedure(s) Performed: BRIEF HISTORY: Patient is a 61-year-old, pleasant, white female scheduled for an upper endoscopy as a part of evaluation of atypical chest pain for the last few weeks duration. She tried omeprazole 20 mg daily but hasn't the severe diarrhea and stopped the medication. PROCEDURE PERFORMED: Esophagogastroduodenoscopy with biopsy. PREOPERATIVE DIAGNOSIS: Atypical chest pain. IV sedation per anesthesia. PROCEDURE: After informed consent was obtained, the patient was brought into the endoscopy unit. IV sedation was administered by Anesthesia under continuous monitoring. Initially the Olympus GIF-140 video endoscope was inserted into the mouth. Esophagus intubated without any difficulty. It was gradually advanced into the stomach and duodenum and carefully examined. The bulb and the second part of the duodenum appeared normal. The scope at this time was withdrawn to the stomach, adequately insufflated with air, and upon careful examination, mucosa of the antrum, body, cardia and the fundus appeared normal. The scope was then withdrawn into the esophagus. The GE junction was located at 39 cm from the incisors. The esophagus appeared normal. There were no erosions or ulcerations seen and the patient tolerated the procedure well. IMPRESSION: 1. Normal-appearing esophagus with no evidence of esophagitis or esophageal stricture. 2. Mild antral gastritis. RECOMMENDATIONS: The findings of this examination were discussed with the patient family. She was advised to follow with the biopsy results.. Symptoms could be related to GERD and hence she will be given a trial of Protonix 40 mg daily for 6 weeks and follow antireflux measures.
[2022-06-13 13:34] VITALS: BP 105/66; PULSE 63
== END 2022-06-13 13:55 | disposition home or self-care (01) ==
LOC: ORWHC2ENDO 11:05
PROVIDERS: ATTEND Internal Medicine Gastroenterology
DX: K29.50 Unspecified chronic gastritis without bleeding (principal); K21.9 Gastro-esophageal reflux disease without esophagitis; E78.5 Hyperlipidemia, unspecified; R56.9 Unspecified convulsions; E07.9 Disorder of thyroid, unspecified; Z88.5 Allergy status to narcotic agent; Z79.890 Hormone replacement therapy
CPT/HCPCS: 43239; J2704; J2001; 88305

== ENCOUNTER → 2022-10-07 | Outpatient (CLI) | payer OTHER ==
[2022-10-07 20:36] LABS: Basophils # (A) 0.02 X 10*3/uL (0.00-0.10); Basophils % (A) 0.3 %; Eosinophils # (A) 0.02 X 10*3/uL (0.04-0.35); Eosinophils % (A) 0.3 %; HCT 39.2 % (37.2-46.3); HGB 13.1 g/dL (12.0-15.0); Immature Grans, Automated 0.3 %; Lymphocytes # (A) 1.71 X 10*3/uL (0.90-5.00); Lymphocytes % (A) 22.4 %; MCHC 33.4 g/dL (32.0-37.0); MCV 98.7 fL (80.0-97.0); Mean Platelet Volume 10.9 fL (9.5-12.2); Monocytes # (A) 0.52 X 10*3/uL (0.20-1.00); Monocytes % (A) 6.8 %; NRBC Per 100 WBC 0 /100 WBCS (0.0-0.0); Neutrophils # (A) 5.35 X 10*3/uL (1.80-7.70); Neutrophils % (A) 69.9 %; Platelet Count 205 X 10*3/uL (140-440); RBC 3.97 X 10*6/uL (4.10-5.20); RDW 12.5 % (11.5-14.5); WBC 7.64 X 10*3/uL (4.50-10.00)
[2022-10-07 23:26] LABS: African American GFR (CKD) 94.6 (60.0-200.0); Anion Gap 12.1 mmol/L (10.00-18.00); BUN/Creat Ratio 17.83 Ratio (12.00-20.00); Blood Urea Nitrogen 13.8 mg/dL (9.0-27.0); Calcium 9.5 mg/dL (8.7-10.3); Carbon Dioxide 25.4 mmol/L (20.0-27.5); Non-African American GFR(CKD) 81.7 (60.0-200.0); Potassium 4.1 mmol/L (3.5-5.5)
== END | disposition home or self-care (01) ==
LOC: LABWHC1 13:20
PROVIDERS: ATTEND Physician Assistant
DX: R31.9 Hematuria, unspecified (principal)
CPT/HCPCS: 36415; 80048; 82550; 85025

== ENCOUNTER → 2022-10-17 | Outpatient (CLI) | payer OTHER ==
--- NOTE | 2022-10-20 09:29 | MM ---
Reason for Exam: Screening (asymptomatic). Last mammogram was performed 1 year(s) and 2 month(s) ago. Indicated Problems: Lump or thickening of the right side for 1 Month(s). Patient History: Menarche at age 14. First Full-Term at age 26. Left ovary removed at age 42. Hysterectomy at age 42. Postmenopausal. Patient has history of breast feeding. Hormonal Contraceptives for 3 years until age 23. Paternal aunt had breast cancer. Maternal cousin had breast cancer at or over age 50. Risk Values: Marian 5 year model risk: 1.6%. NCI Lifetime model risk: 6.8%. Prior Study Comparison: 03/31/2019 Bilateral Screening Mammogram, [facility]. 07/12/2020 Bilateral Screening Mammogram, [facility]. 08/02/2021 Bilateral Screening Mammogram, [facility]. Tissue Density: The breast tissue is heterogeneously dense. This may lower the sensitivity of mammography. Findings: Analyzed By CAD. There is no suspicious group of microcalcifications within either breast. No new suspicious mass within the left breast. Focal asymmetry within the right breast at middle to posterior depth centrally. Overall Assessment: Incomplete: need additional imaging evaluation, BI-RAD 0 Management: Diagnostic Mammogram of the right breast. A clinical breast exam by your physician is recommended on an annual basis and results should be correlated with mammographic findings. [facility] will attempt to contact patient to return for supplemental views and ultrasound if indicated. Electronically signed and approved by: Huy Craft D.O.
== END | disposition home or self-care (01) ==
LOC: RADMAMWWP 15:19
PROVIDERS: ATTEND Family Medicine
DX: Z12.31 Encounter for screening mammogram for malignant neoplasm of breast (principal); Z78.0 Asymptomatic menopausal state; Z80.3 Family history of malignant neoplasm of breast
CPT/HCPCS: 77063; 77067

== ENCOUNTER → 2022-10-22 | Outpatient (CLI) | payer OTHER ==
--- NOTE | 2022-10-22 09:27 | MM ---
Reason for Exam: Additional evaluation requested from abnormal screening. Last screening mammogram was performed less than 1 month ago. Patient History: Menarche at age 14. First Full-Term at age 26. Left ovary removed at age 42. Hysterectomy at age 42. Postmenopausal. Patient has history of breast feeding. Hormonal Contraceptives for 3 years until age 23. Paternal aunt had breast cancer. Maternal cousin had breast cancer at or over age 50. Risk Values: Marian 5 year model risk: 1.6%. NCI Lifetime model risk: 6.8%. Tissue Density: Right: The breast tissue is heterogeneously dense. This may lower the sensitivity of mammography. Findings: Analyzed By CAD. The central area of focal asymmetry does not persist on additional spot 3-D and 3-D lateral views. Further ultrasound for the patient's reported palpable site. Overall Assessment: Incomplete: need additional imaging evaluation, BI-RAD 0 Management: Diagnostic Breast Ultrasound of the right breast. For the patient's palpable site. Electronically signed and approved by: Alyssia Chandler M.D. Radiologist
--- NOTE | 2022-10-22 11:29 | USB ---
Reason for Exam: Clinical finding. Patient History: Menarche at age 14. First Full-Term at age 26. Left ovary removed at age 42. Hysterectomy at age 42. Postmenopausal. Patient has history of breast feeding. Hormonal Contraceptives for 3 years until age 23. Paternal aunt had breast cancer. Maternal cousin had breast cancer at or over age 50. Risk Values: Marian 5 year model risk: 1.6%. NCI Lifetime model risk: 6.8%. Technique: Method: Targeted. Prior Study Comparison: 07/12/2020 Bilateral Screening Mammogram, [facility]. 08/02/2021 Bilateral Screening Mammogram, [facility]. 10/17/2022 Bilateral MG 3D screening mammo w/cad, [facility]. Findings: The upper section of the breast of the right breast, the area of palpable concern of the right breast, the axilla of the right breast and the retroareolar of the right breast were scanned. Targeted ultrasound right breast superiorly centered at the palpable area. Scanning from 11:00 to 1:00. No solid or cystic lesion. Overall Assessment: Benign, BI-RAD 2 Management: Screening Mammogram of both breasts in 1 year. Further clinical management for any suspicious palpable abnormality. If any enlarging palpable area is identified, the patient can be sent back for rescanning. A clinical breast exam by your physician is recommended on an annual basis. Patient should continue monthly self breast exams. Results were given to the patient verbally at the time of exam. Electronically signed and approved by: Alyssia Chandler M.D. Radiologist
== END | disposition home or self-care (01) ==
LOC: RADMAMWWP 08:58
PROVIDERS: ATTEND Family Medicine
DX: R92.8 Other abnormal and inconclusive findings on diagnostic imaging of breast (principal); Z90.710 Acquired absence of both cervix and uterus; Z78.0 Asymptomatic menopausal state; Z80.3 Family history of malignant neoplasm of breast
CPT/HCPCS: 77061; 77065

== ENCOUNTER → 2023-06-12 | Outpatient (CLI) | payer OTHER ==
--- NOTE | 2023-06-14 21:30 | US ---
EXAMINATION TYPE: US thyroid st tissue head/neck DATE OF EXAM: 06/12/2023 COMPARISON: 12/30/2021 CLINICAL INDICATION: Female, 62 years old with history of E04.1 NONTOXIC SINGLE THYROID NODULE; Right lateral neck/submandibular/face pain x 1 month GLAND SIZE: Right Lobe: 5.5 x 1.5 x 1.6 cm Overall Parenchyma: homogeneous Left Lobe: 5.4 x 1.2 x 1.7 cm Overall Parenchyma: homogeneous Isthmus Thickness: 0.2 cm NODULES RIGHT: # of nodules measured on right: 1 1. 1.0 X 0.4 x 0.6 cm, benign colloid cyst which is wider than tall, with smooth margins, without e chogenic foci. Prior size: 0.6 x 0.5 x 0.3 cm LEFT: # of nodules measured on left: 2 1. 0.5 X 0.5 x 0.5 cm, mid mid, solid or almost completely solid, hypoechoic TR 4 nodule, which is wider than tall, with smooth margins, without echogenic foci. Prior size: 0.8 x 0.6 x 0.4 cm 2. 1.0 X 0.7 x 0.8 cm, lower mid, solid or almost completely solid, isoechoic TR 3 nodule, which i s wider than tall, with smooth margins, without echogenic foci. Prior size: 1.2 x 0.9 x 0.6 cm ISTHMUS: # of nodules measured in the isthmus: 0 Additional targeted scanning along the right lateral neck and submandibular space. No lymphadenopathy identified. IMPRESSION: Mild thyromegaly with a few scattered nodules. The largest is a 1 cm TR3 nodule on the left which is stable to slightly smaller.
== END | disposition home or self-care (01) ==
LOC: RADUSWWP 12:52
PROVIDERS: ATTEND Family Medicine
DX: E04.1 Nontoxic single thyroid nodule (principal); I88.9 Nonspecific lymphadenitis, unspecified
CPT/HCPCS: 76536

== ENCOUNTER 2024-09-07 08:30 | Day surgery (SDC) | payer BC, MEDICARE ==
[2024-09-07 08:46] VITALS: TEMP 97.5
[2024-09-07] MEDS: LACTATED RINGERS 1,000 ML IV ONE (08:53)
[2024-09-07] MEDS: LACTATED RINGERS 1,000 ML IV SCH (08:55)
[2024-09-07] MEDS ORDERED: LIDOCAINE 1% INJ 10MG/ML (20 ML MDV) ONE (09:44)
[2024-09-07] MEDS ORDERED: PROPOFOL 10 MG/ML 20 ML VIAL IV ONE (09:44)
--- NOTE | 2024-09-07 10:19 | P.PCN ---
Date of Procedure: 09/07/24 Procedure(s) Performed: BRIEF HISTORY: Patient is a 64-year-old pleasant white female scheduled for an elective colonoscopy as a part of screening for colon cancer. PROCEDURE PERFORMED: Colonoscopy. PREOPERATIVE DIAGNOSIS: Screening for colon cancer. IV sedation per Anesthesia. PROCEDURE: After informed consent was obtained, the patient, was brought into the endoscopy unit. IV sedation was administered by Anesthesia under continuous monitoring. Digital rectal examination was normal. Initially the Olympus CF-160 flexible video colonoscope was then inserted in the rectum, gradually advanced into the descending colon with moderate to severe difficulty. Further advancement was not possible. Scope was then withdrawn.. Pediatric colonoscopy then introduced into the rectum and gradually advanced into the cecum with moderate to severe difficulty. Careful examination was performed as the scope was gradually being withdrawn. Ileocecal valve and the appendiceal orifice were visualized and appeared normal. Prep was excellent. Mucosa of the cecum, ascending colon, transverse colon, descending colon, sigmoid colon, and rectum appeared normal. In the distal rectum there was a small diverticulum identified anteriorly. Retroflexion was performed in the rectum and no lesions were seen. The patient tolerated the procedure well. IMPRESSION: Normal-appearing colon from rectum to cecum as of colorectal neoplasia. Small diverticulum in the anterior part of the rectum noted. RECOMMENDATIONS: Findings of this examination were discussed with the patient as well as her family. She was advised to have repeat screening colonoscopy in 10 years..
[2024-09-07 10:31] VITALS: RESP 16
[2024-09-07 10:41] VITALS: BP 115/70; PULSE 67
== END 2024-09-07 11:08 | disposition home or self-care (01) ==
LOC: ORWHC2ENDO 08:30
PROVIDERS: ATTEND Internal Medicine Gastroenterology
DX: Z12.11 Encounter for screening for malignant neoplasm of colon (principal); K57.30 Diverticulosis of large intestine without perforation or abscess without bleeding; E78.5 Hyperlipidemia, unspecified; E07.9 Disorder of thyroid, unspecified; R56.9 Unspecified convulsions; J45.909 Unspecified asthma, uncomplicated; F41.9 Anxiety disorder, unspecified; F32.A Depression, unspecified; Z79.890 Hormone replacement therapy; Z79.899 Other long term (current) drug therapy; Z88.5 Allergy status to narcotic agent; Z88.8 Allergy status to other drugs, medicaments and biological substances
CPT/HCPCS: J2003; J2704; G0121

== ENCOUNTER → 2024-09-21 | Outpatient (CLI) | payer BC, MEDICARE ==
--- NOTE | 2024-09-21 15:17 | US ---
EXAMINATION TYPE: US thyroid st tissue head/neck DATE OF EXAM: 09/21/2024 COMPARISON: 06/12/2023 CLINICAL INDICATION: Female, 64 years old with history of E04.1 NONTOXIC SINGLE THYROID NODULE; Patie nt denies any signs, symptoms, or relevant history TECHNIQUE: Grayscale and color Doppler imaging of the thyroid gland. FINDINGS: GLAND SIZE: Right Lobe: 5.6 x 1.4 x 1.5 cm Overall Parenchyma: homogeneous Left Lobe: 5.6 x 1.3 x 1.6 cm Overall Parenchyma: homogeneous Isthmus Thickness: 0.2 cm NODULES RIGHT: # of nodules measured on right: 1 1. 1.0 X 0.4 x 0.7 cm, mid lateral, benign cyst Prior size: 1.0 x 0.4 x 0.6 cm LEFT: # of nodules measured on left: 2 1. 0.8 X 0.6 x 0.7 cm, mid mid, solid or almost completely solid, hypoechoic TR 4 nodule, which is wider than tall, with ill-defined margins, without echogenic foci. Prior size: 0.6 x 0.5 x 0.5 cm 2. 1.2 X 0.7 x 0.7 cm, lower medial, solid or almost completely solid, hypoechoic TR 4 nodule, whi ch is wider than tall, with smooth margins, without echogenic foci. Prior size: Not measured / missed 2016 ACR TI-RADS LEVEL: TI-RADS 4 - Moderately Suspicious: Follow if > 1 cm, FNA if > 1.5 cm ISTHMUS: # of nodules measured in the isthmus: 0 Bilateral neck scanned, no evidence of lymphadenopathy. IMPRESSION: 1. Mild thyromegaly; consider goiter. 2. A couple TR4 nodules in the left lobe measuring 1.2 cm and 0.8 cm. The smaller nodule is minimally larger. The larger nodule was not seen on the prior exam. TR4: If nodule size is ? 1.5 cm, FNA is recommended. If nodule size is ? 1.0 cm, follow-up imaging at 1, 2, 3, and 5 years is recommended. [facility], Workstation: [email or web address], 09/21/2024 3:14 PM
== END | disposition home or self-care (01) ==
LOC: RADUSWWP 12:49
PROVIDERS: ATTEND Family Medicine
DX: E04.2 Nontoxic multinodular goiter (principal)
CPT/HCPCS: 76536

== ENCOUNTER → 2024-11-02 | Outpatient (CLI) | payer MEDICARE ==
--- NOTE | 2024-11-02 13:27 | MM ---
Reason for Exam: Screening (asymptomatic). Last mammogram was performed 2 year(s) and 1 month(s) ago. Patient History: Menarche at age 14. First Full-Term at age 26. Left ovary removed at age 42. Hysterectomy at age 42. Postmenopausal. Patient has history of breast feeding. Hormonal Contraceptives for 3 years until age 23. Paternal aunt had breast cancer. Maternal cousin had breast cancer at or over age 50. Risk Values: Marian 5 year model risk: 1.7%. NCI Lifetime model risk: 6.3%. Prior Study Comparison: 08/02/2021 Bilateral Screening Mammogram, [facility]. 10/17/2022 Bilateral MG 3D screening mammo w/cad, [facility]. 10/22/2022 Right MG 3D work up w/cad RT, [facility]. Tissue Density: The breasts are heterogeneously dense, which may obscure small masses. Findings: Analyzed By CAD. There is no suspicious group of microcalcifications or new suspicious mass in either breast. Overall Assessment: Negative, BI-RAD 1 Management: Screening Mammogram of both breasts in 1 year. . Patient should continue monthly self-breast exams. A clinical breast exam by your physician is recommended on an annual basis. This exam should not preclude additional follow-up of suspicious palpable abnormalities. Note on Marian scores and lifetime risk: 1. A Marian score greater than 3% is considered moderate risk. If this is the case, consider specialist referral to assess eligibility for a risk reducing agent. 2. If overall lifetime risk for the development of breast cancer is 20% or higher, the patient may qualify for future screening with alternating mammogram and breast MRI. [facility], , 11/02/2024 1:24 PM. Electronically signed and approved by: Gurpreet Lebron M.D.
== END | disposition home or self-care (01) ==
LOC: RADMAMWWP 12:43
PROVIDERS: ATTEND Family Medicine
DX: Z12.31 Encounter for screening mammogram for malignant neoplasm of breast (principal); R92.333 Mammographic heterogeneous density, bilateral breasts; Z78.0 Asymptomatic menopausal state; Z80.3 Family history of malignant neoplasm of breast; Z92.0 Personal history of contraception
CPT/HCPCS: 77063; 77067